=== PATIENT | female | born 1940 | race Caucasian/White ===

== ENCOUNTER 2020-04-28 17:25 | Inpatient (IN) | payer MEDICARE, OTHER ==
[~2020-04-28] VITALS: Ht 165.1 cm; Wt 118.8 kg
--- NOTE | 2020-04-28 17:51 | NUR ---
GPS ADMISSION NOTE : [email or web address] . PATIENT ARRIVED ON THIS UNIT AT VIA WHEELCHAIR WITH 1 EMT ESCORT. PATIENT ADMITTED ON A 5150 HOLD FOR DTS,GD. PER HOLD PATIENT DELUSIONAL SHE BELIEVES SHE NEEDS TO DRIVE TO THE LOCAL AIR PORT BECAUSE HER SON IS SENDING A PRIVATE JUT FOR HER PATIENT UNABLE TO PROVIDE A SAFE PLAN AT THIS TIME THE 5150 WAS REVIEWED AND THE DOCUMENTATION IN THE 5150 HOLD APPEARS TO REFLECT THE PRESENTATION OF THE PATIENT. UPON FACE TO FACE ASSESSMENT PATIENT IS CURRENTLY IN BED AWAKE, HAS NO S/S OR COMPLAINTS OF PAIN. PATIENT IS DISPLAYING NO S/S OF APPARENT DISTRESS. PATIENT BREATHING IS UNLABORED WITH EQUAL RISE AND FALL OF THE CHEST. PATIENT IS ALERT AND ORIENTATED X 2 ON ROOM AIR. PATIENT ASSISTED WITH TURING AND REPOSITIONING Q2HR AND PRN FOR COMFORT AND CIRCULATION. PATIENT HAS NO NEEDS AT THIS TIME. PATIENT IS NOTED TO BEING DELUSIONAL, DISHEVELED, DISORGANIZED, COOPERATIVE, AND NEEDS REDIRECTION. PATIENT DENIES SUICIDE IDEATIONS AND HOMICIDAL IDEATIONS AT THIS TIME. PATIENT IS UNDER THE PSYCHIATRIC CARE OF DR. YOUNG AND THE MEDICAL CARE OF DR RUGGIERO. PATIENT BELONGINGS WERE INVENTORIED AND CHECKED FOR CONTRABAND. ALL CONTRABAND REMOVED AND STORED IN PATIENT HALLWAY LOCKER. PATIENT ADVANCED DIRECTIVES PREFERENCE, IMMUNIZATIONS QUESTIONER COMPLETED. PATIENT EDUCATED ON THE USE OF THE CALL RODRIGUEZ. PATIENT BED SIDE RAILS ARE UP X 2 FOR SAFETY. PATIENT BED IS LOCKED, LOW AND I WILL CONTINUE TO MONITOR THIS PATIENT Q 15 MIN WITH THE HELP OF STAFF TO MAINTAIN SAFETY. WILL INDORSE TO INCOMING SHIFT NURSE OF FULL ADMISSION AND CONTINUATION OF CARE
[2020-04-28] MEDS ORDERED: HYDR50TA3 PO (18:16)
[2020-04-28] MEDS ORDERED: TRAM50TA2 PO (18:16)
[2020-04-28] MEDS ORDERED: CALC-20 PO (18:16)
[2020-04-28] MEDS ORDERED: ATOR40TA PO (18:16)
[2020-04-28] MEDS ORDERED: AMLO5TAB9 PO (18:16)
[2020-04-28] MEDS ORDERED: MULT-447 PO (18:16)
[2020-04-28] MEDS ORDERED: ISOS60TA4 PO (18:16)
[2020-04-28] MEDS ORDERED: ACET325T53 PO (18:16)
[2020-04-28] MEDS ORDERED: ATEN100T PO (18:16)
[2020-04-28] MEDS ORDERED: BLOOD SUGAR DIAGNOSTIC 1 EACH STRIP IN ONE ×2 (18:30)
[2020-04-28] MEDS ORDERED: MAG HYDROX/AL HYDROX/SIMETH 30 ML UDC PO PRN ×2 (18:30)
[2020-04-28] MEDS ORDERED: ACETAMINOPHEN 325 MG TABLET PO PRN ×2 (18:30→20:30)
[2020-04-28] MEDS ORDERED: MAGNESIUM HYDROXIDE 30 ML UDC PO PRN ×2 (18:30)
[2020-04-28 20:14] VITALS: BP 148/78
[2020-04-28] MEDS ORDERED: LORAZEPAM 0.5 MG TABLET PO PRN (21:00)
[2020-04-28] MEDS: ACETAMINOPHEN 325 MG TABLET PO PRN (22:05)
--- NOTE | 2020-04-28 22:05 | NUR ---
GPS-RN NOTE: C/O BILATERAL KNEE PAIN PATIENT C/O BILATERAL KNEE PAIN ON A PAIN SCALE OF 3/10. ADMINISTERED ACETAMINOPHEN 650MG PO ORDERED. WILL CONTINUE TO REASSESS.
[2020-04-29 03:01] LABS: APPEARANCE,URINE CLEAR (CLEAR); BILIRUBIN,URINE NEGATIVE (NEGATIVE); BLOOD, URINE NEGATIVE Ery/uL (NEGATIVE); COLOR,URINE YELLOW (YELLOW); KETONES,URINE NEGATIVE (NEGATIVE); LEUKOCYTE ESTERASE ,URINE NEGATIVE (NEGATIVE); NITRITE, URINE NEGATIVE (NEGATIVE); PH,URINE 6.5 (5.0-8.0); PROTEIN,URINE NEGATIVE (NEGATIVE); UGLUCOSE NEGATIVE (NEGATIVE)
[2020-04-29 03:08] LABS: BACTERIA,URINE Few /HPF (None Seen); RBC,URINE 0-2 /HPF (0-2); SQUAMOUS EPITHELIAL CELL,UR Moderate /HPF (None Seen); WBC,URINE 0-2 /HPF (0-3)
[2020-04-29 06:22] LABS: BASOPHILS % (AUTO) 0.3 % (0.0-2.0); EOSINOPHILS % (AUTO) 0.4 % (0.0-6.0); HEMATOCRIT 37 % (33-45); HEMOGLOBIN 12.5 g/dL (11.5-14.8); LYMPHOCYTES # (AUTO) 1.4 /CMM (0.8-4.8); LYMPHOCYTES % (AUTO) 25.9 % (20.0-44.0); MEAN CORPUSCULAR HGB CONC 34 g/dl (31.0-36.0); MEAN CORPUSCULAR VOLUME 89 fL (82-100); MONOCYTES # (AUTO) 0.8 /CMM (0.1-1.30); MONOCYTES % (AUTO) 14.9 % (2.0-12.0); NEUTROPHILS # (AUTO) 3.1 /CMM (1.8-8.9); NEUTROPHILS % (AUTO) 58.5 % (43.0-81.0); PLATELET COUNT (AUTO) 229 /CMM (150-450); RED BLOOD CELL COUNT(AUTO) 4.19 MIL/uL (4.0-5.2); WHITE BLOOD COUNT (AUTO) 5.3 K/uL (4.3-11.0)
[2020-04-29 06:58] LABS: ALANINE AMINOTRANSFERASE 22 U/L (12-78); ALBUMIN 2.6 g/dL (3.4-5.0); ALKALINE PHOSPHATASE 58 U/L (46-116); ASPARTATE AMINOTRANSFERASE 24 U/L (15-37); BILIRUBIN,TOTAL 0.6 mg/dL (0.2-1.0); CALCIUM, SERUM 8.6 mg/dL (8.5-10.1); CARBON DIOXIDE 29 mmol/L (21-32); CHLORIDE 101 mmol/L (98-107); CREATININE 0.5 mg/dL (0.6-1.3); GLUCOSE 98 mg/dL (74-106); MAGNESIUM 1.7 mg/dL (1.8-2.4); PHOSPHORUS 1.8 mg/dL (2.5-4.9); SODIUM SERUM 140 mmol/L (136-145); TOTAL PROTEIN, SERUM 6.4 g/dL (6.4-8.2); UREA NITROGEN, BLOOD 6 mg/dL (7-18)
[2020-04-29 07:02] LABS: POTASSIUM 2.3 mmol/L (3.5-5.1)
[2020-04-29 07:13] LABS: CHOLESTEROL 130 mg/dL (<200); HDL CHOLESTEROL 65 mg/dL (40-60); LDL 50 mg/dL (0-99); TRIGLYCERIDES 69 mg/dL (30-150)
--- NOTE | 2020-04-29 07:13 | NUR ---
GPS-RN NOTE: CALLED P D DRIVER BAHMAN REPORTED CRITICAL LAB RESULT OF POTASSIUM 2.3 AND LOW MAGNESIUM OF 1.7. RECEIVED ORDERS NOTED AND CARRIED OUT. WILL ENDORSE TO THE DAY SHIFT NURSE FOR CONTINUITY OF CARE.
[2020-04-29] MEDS ORDERED: MAGNESIUM OXIDE 400 MG TABLET PO ONE (07:30)
[2020-04-29] MEDS ORDERED: POTASSIUM CHLORIDE 20 MEQ TAB.PRT.SR PO ONE (07:30)
[2020-04-29 08:00] VITALS: BP 140/62
[2020-04-29] MEDS ORDERED: HYDROCHLOROTHIAZIDE 25 MG TABLET PO SCH (09:00)
[2020-04-29] MEDS ORDERED: AMLODIPINE BESYLATE 5 MG TABLET PO SCH (09:00)
[2020-04-29] MEDS: CALCIUM CARB 600MG /VIT D 1 EACH TABLET PO SCH (09:10)
[2020-04-29] MEDS: ISOSORBIDE MONONITRATE (30MG) 30 MG TAB.SR.24H PO SCH (09:13)
[2020-04-29] MEDS: AMLODIPINE BESYLATE 5 MG TABLET PO SCH (09:13)
[2020-04-29] MEDS: ATENOLOL 50 MG TABLET PO SCH (09:14)
[2020-04-29] MEDS: MULTIVIT W/MINERALS 1 TAB TABLET PO SCH (09:14)
[2020-04-29] MEDS: MAGNESIUM OXIDE 400 MG TABLET PO SCH ×2 (09:17→16:14)
[2020-04-29] MEDS: NEUTRA PHOS 1 POWD.PACKET PO SCH ×3 (09:55→16:14)
--- NOTE | 2020-04-29 11:08 | NUR ---
GPS/RN-NOTES SEEN BY DR. NESTOR RENEE WITH VERBAL ORDER OF BMP TOMORROW. NOTED AND CARRIED OUT.
--- NOTE | 2020-04-29 11:53 | NUR ---
JULIANA Initial Discharge Plan: Patient currently resides [place] [address] [facility] [place] [address]; ([phone]). Per pt, she resides with her daughter Aliza ([phone]). This short story writer attempted to contact Aliza, but she was unavailable to gather collateral. This short story writer left a voicemail to contact JULIANA. This short story writer will work with the MD and treatment team to coordinate proper discharge plan.
--- NOTE | 2020-04-29 11:54 | NUR ---
SW Family Contact: This press writer attempted to contact patient's daughter Aliza ([phone]) to gather collateral, however, she was unavailable and this press writer left a voicemail.
[2020-04-29 13:45] LABS: CALCIUM, SERUM 8.6 mg/dL (8.5-10.1); CREATININE 0.6 mg/dL (0.6-1.3)
[2020-04-29 13:48] LABS: POTASSIUM 2.6 mmol/L (3.5-5.1)
[2020-04-29 16:00] VITALS: BP 121/51
[2020-04-29] MEDS: ATORVASTATIN 40 MG TABLET PO SCH (17:13)
[2020-04-29 20:43] VITALS: BP 140/67
--- NOTE | 2020-04-30 00:37 | NUR ---
GPS RN NOTE: SKIN ASSESSMENT 04/29/20 @ 5923 NOTICED WHEN THE PT WAS WALKING TO RESTROOM HER FEET WERE SWOLLEN, PTS FEET/ANKLE WERE +3, NON-PITTING EDEMA. PLACED PICTURES IN CHART, WOUND CONSULT NOT NEEDED AT THIS TIME. WILL PASS IT ON TO MORNING NURSE TO NOTIFY FRUIT PACKER FACE AND FILL WHEN MAKING ROUNDS, PT COMPLAINTS OF NO PAIN OTHER THAN WHEN APPLYING PRESSURE. ELEVATED PTS LEGS, WILL CONTINUE TO MONITOR Q15MIN FOR SAFETY AND BEHAVIOR AND ROTATE SITE E. 2HRS.
--- NOTE | 2020-04-30 05:09 | NUR ---
GPS RN NOTE: ANXIETY PT WAS FEELING RESTLESS AND IRRITABLE, ASKED PT IF SHE'D LIKE TO TRY ATIVAN TO HELP WITH HER COMPLAINT SHE SAID "SURE LET ME TRY THAT". ADMIN PRN ATIVAN. WILL REASSESS AND CONTINUE TO MONITOR Q15MIN FOR SAFETY AND BEHAVIOR
--- NOTE | 2020-04-30 06:57 | NUR ---
GPS RN NOTE: PT REFUSED BLOOD DRAW PT REFUSED BLOOD DRAW, REMINDED PT 3X OF THE REASON FOR BLOOD DRAW, THE NEED TO DO SO ESPECIALLY DUE TO K+ AND MG LEVELS BEING LOW YESTERDAY BUT PT STILL REFUSED, LAB SAID THEY WILL COME BACK IN A FEW HOURS TO TRY AGAIN. I WILL LET UPCOMING NURSE KNOW.
[2020-04-30 08:00] VITALS: BP 129/75
[2020-04-30] MEDS: CALCIUM CARB 600MG /VIT D 1 EACH TABLET PO SCH ×2 (09:00→09:54)
[2020-04-30] MEDS: ISOSORBIDE MONONITRATE (30MG) 30 MG TAB.SR.24H PO SCH (09:56)
[2020-04-30] MEDS: MAGNESIUM OXIDE 400 MG TABLET PO SCH ×2 (09:56→18:18)
[2020-04-30] MEDS: risperiDONE 1 MG TABLET PO SCH ×2 (09:56→22:00)
[2020-04-30] MEDS: MULTIVIT W/MINERALS 1 TAB TABLET PO SCH (09:56)
[2020-04-30] MEDS ORDERED: POTASSIUM CHLORIDE 20 MEQ TAB.PRT.SR PO ONE (12:00)
[2020-04-30] MEDS: ATENOLOL 50 MG TABLET PO SCH (12:30)
--- NOTE | 2020-04-30 13:12 | NUR ---
potassium level has been low,refusing labs today.tad palliative senior np ordering k-dur 40 meq. for pt.
[2020-04-30 16:00] VITALS: BP 106/71
[2020-04-30 16:05] LABS: BASOPHILS % (AUTO) 0.3 % (0.0-2.0); EOSINOPHILS % (AUTO) 0.3 % (0.0-6.0); HEMATOCRIT 40 % (33-45); HEMOGLOBIN 13.2 g/dL (11.5-14.8); LYMPHOCYTES # (AUTO) 1.8 /CMM (0.8-4.8); LYMPHOCYTES % (AUTO) 38.3 % (20.0-44.0); MEAN CORPUSCULAR HGB CONC 33 g/dl (31.0-36.0); MEAN CORPUSCULAR VOLUME 89 fL (82-100); MONOCYTES # (AUTO) 0.7 /CMM (0.1-1.30); MONOCYTES % (AUTO) 15.9 % (2.0-12.0); NEUTROPHILS # (AUTO) 2.1 /CMM (1.8-8.9); NEUTROPHILS % (AUTO) 45.2 % (43.0-81.0); PLATELET COUNT (AUTO) 251 /CMM (150-450); RED BLOOD CELL COUNT(AUTO) 4.43 MIL/uL (4.0-5.2); WHITE BLOOD COUNT (AUTO) 4.6 K/uL (4.3-11.0)
[2020-04-30] MEDS: AMLODIPINE BESYLATE 5 MG TABLET PO SCH (16:19)
[2020-04-30 16:22] LABS: ALBUMIN 2.9 g/dL (3.4-5.0); BILIRUBIN,TOTAL 0.5 mg/dL (0.2-1.0); CALCIUM, SERUM 8.7 mg/dL (8.5-10.1); CREATININE 0.8 mg/dL (0.6-1.3); MAGNESIUM 1.7 mg/dL (1.8-2.4); PHOSPHORUS 2.5 mg/dL (2.5-4.9)
[2020-04-30 16:27] LABS: POTASSIUM 2.7 mmol/L (3.5-5.1)
[2020-04-30 16:50] LABS: LYMPHOCYTES % (MANUAL) 22 % (16-48); MONOCYTES % (MANUAL) 15 % (0-11.0); NEUTROPHILS % (MANUAL) 63 (42-76)
--- NOTE | 2020-04-30 18:00 | NUR ---
tad labor representative aware potassium level 2.7 with lab draw this afternoon,ordered labs for tomorrow.lab drawn late only short time after kcl given.
[2020-04-30] MEDS: ATORVASTATIN 40 MG TABLET PO SCH (18:19)
[2020-04-30 20:00] VITALS: BP 115/94
[2020-04-30 20:05] VITALS: BP 115/94
[2020-04-30 22:10] VITALS: BP 122/87
--- NOTE | 2020-04-30 22:12 | NUR ---
GPS RN NOTE: REFUSED RISPERDAL PATIENT REFUSED TO TAKE RISPERDAL AT [address] YOUNG AT THIS TIME & MD EXPLAINED THAT MEDICINE WILL HELP HER TO GET BETTER BUT PATIENT KEPT SAYING," I WANT TO GET OFF OF MEDICATION, I DON'T NEED IT." DESPITE OF RISKS & BENEFITS EXPLANATIONS, PATIENT CONTINUED TO REFUSE RISPERDAL SCHEDULED.
[2020-05-01] MEDS: ACETAMINOPHEN 325 MG TABLET PO PRN (05:50)
--- NOTE | 2020-05-01 05:54 | NUR ---
GPS RN NOTE: LEFT KNEE PAIN PATIENT C/O LEFT KNEE PAIN 10/19 & WANTED TO TAKE TYLENOL. PRN TYLENOL GIVEN ORDERED. WILL CONTINUE TO MONITOR.
[2020-05-01 07:38] LABS: CALCIUM, SERUM 8.9 mg/dL (8.5-10.1); CREATININE 0.6 mg/dL (0.6-1.3); MAGNESIUM 1.8 mg/dL (1.8-2.4); PHOSPHORUS 2.6 mg/dL (2.5-4.9)
[2020-05-01 07:51] LABS: POTASSIUM 2.8 mmol/L (3.5-5.1)
[2020-05-01 08:00] VITALS: BP 118/43
[2020-05-01] MEDS: ATENOLOL 50 MG TABLET PO SCH (09:00)
[2020-05-01] MEDS: MULTIVIT W/MINERALS 1 TAB TABLET PO SCH (09:20)
[2020-05-01] MEDS: ISOSORBIDE MONONITRATE (30MG) 30 MG TAB.SR.24H PO SCH (09:20)
[2020-05-01] MEDS: CALCIUM CARB 600MG /VIT D 1 EACH TABLET PO SCH (09:20)
[2020-05-01] MEDS: AMLODIPINE BESYLATE 5 MG TABLET PO SCH (09:22)
[2020-05-01] MEDS: risperiDONE 1 MG TABLET PO SCH ×2 (09:23→21:16)
[2020-05-01] MEDS: POTASSIUM CHLORIDE 20 MEQ TAB.PRT.SR PO SCH ×3 (10:29→13:08)
[2020-05-01] MEDS ORDERED: PANTOPRAZOLE 40 MG TABLET.DR PO ONE (10:30)
[2020-05-01] MEDS ORDERED: MAGNESIUM OXIDE 400 MG TABLET PO ONE (10:30)
[2020-05-01] MEDS ORDERED: POTASSIUM CHLORIDE 20 MEQ TAB.PRT.SR PO ONE (10:30)
[2020-05-01 16:00] VITALS: BP 142/68
[2020-05-01] MEDS: ATORVASTATIN 40 MG TABLET PO SCH (16:11)
[2020-05-01 19:55] VITALS: BP 140/82
[2020-05-01] MEDS: TEMAZEPAM 7.5 MG CAPSULE PO PRN (22:43)
--- NOTE | 2020-05-01 22:47 | NUR ---
GPS RN NOTE: INSOMNIA PATIENT IS UNABLE TO SLEEP, ANXIOUS, HYPERVERBAL, PARANOID AT THIS TIME. PRN RESTORIL 7.5 MG 1 CAP PO GIVEN. WILL CONTINUE TO MONITOR FOR EFFECTIVENESS.
--- NOTE | 2020-05-02 07:46 | NUR ---
RN NOTES PATIENT RECEIVED IN BED RESTING COMFORTABLY, ALERT AND ORIENTED X 2. HYPERVERBAL SPEECH PRESENT AT THIS TIME, SPEAKING ABOUT GOD, AND HER [place] [employer], STATING SHE NEEDS TO LEAVE. PATIENT ON ROOM AIR WITH NO RESPIRATORY DISTRESS PRESENT AT THIS TIME WITH EVEN NON-LABORED BREATHING, WITH NO SOB NOTED. NO APPARENT DISTRESS AT THIS TIME. PATIENT PRESENTS WITH NO PAIN OR DISCOMFORT. SAFETY PRECAUTIONS IMPLEMENTED WITH BED LOCKED, BED IN THE LOWEST POSITION, BILATERAL SIDE RAILS UP, BED ALARM ON. WILL CONTINUE TO MONITOR PATIENT.
[2020-05-02 08:00] VITALS: BP 130/58
[2020-05-02] MEDS: risperiDONE 1 MG TABLET PO SCH ×2 (08:22→21:30)
[2020-05-02] MEDS: AMLODIPINE BESYLATE 5 MG TABLET PO SCH (08:23)
[2020-05-02] MEDS: MULTIVIT W/MINERALS 1 TAB TABLET PO SCH (08:23)
[2020-05-02] MEDS: CALCIUM CARB 600MG /VIT D 1 EACH TABLET PO SCH (08:23)
[2020-05-02] MEDS: ISOSORBIDE MONONITRATE (30MG) 30 MG TAB.SR.24H PO SCH (08:24)
[2020-05-02] MEDS: ATENOLOL 50 MG TABLET PO SCH (08:28)
[2020-05-02 08:38] LABS: CALCIUM, SERUM 8.9 mg/dL (8.5-10.1); CREATININE 0.6 mg/dL (0.6-1.3); PHOSPHORUS 2.3 mg/dL (2.5-4.9); POTASSIUM 3.4 mmol/L (3.5-5.1)
--- NOTE | 2020-05-02 11:55 | NUR ---
RN NOTES PATIENT HAS SCHEDULE PO POTASSIUM CHLORIDE 20 mEq ORDERED, PATIENT REFUSED MEDICATION STATING "I DON'T NEED THIS AND NEED TO SEE MY DR, I AM REFUSING THIS MEDICATION." EDUCATED THE PATIENT THE REASON FOR MEDICATION AND RISKS AND BENEFITS. PATIENT KEPT REFUSING MULTIPLE TIMES. CHARGE NURSE MADE AWARE AND WILL CONTINUE TO MONITOR PATIENT.
[2020-05-02] MEDS ORDERED: POTASSIUM CHLORIDE 20 MEQ TAB.PRT.SR PO SCH (12:00)
[2020-05-02] MEDS ORDERED: K PHOS NEUTRAL 250 MG TABLET PO ONE (14:00)
--- NOTE | 2020-05-02 14:59 | NUR ---
RN NOTES PATIENT REFUSED NEUTRA PHOS K 500mg ORDERED. EXPLAINED AND EDUCATED THE PATIENT THE RISKS AND BENEFITS OF TAKING THIS MEDICATIONS, AND PATIENT KEPT REFUSING MULTIPLE TIMES. KEPT ON EDUCATING AND PATIENT DID NOT WANT TO HEAR IT AND STATING " I AM NOT TAKING ANY MEDICATIONS." WILL CONTINUE TO MONITOR PATIENT.
--- NOTE | 2020-05-02 15:12 | NUR ---
Family Contact: Pt's daughter Aliza ([phone]) called the SW and stated that she wanted an update regarding the pts diagnosis and discharge plan. SW informed her of the diagnosis and stated that she is going to be sending out referrals for the pt today. SW stated that she will update her the following day with an accepting facility. Pts daughter reinforced that this placement is going to be temporary as the plan is to discharge the pt to a facility in [place].
--- NOTE | 2020-05-02 15:42 | NUR ---
SNF Referral: JULIANA faxed a referral to [facility] with attention to Regina to the fax number: [phone].
[2020-05-02] MEDS: ATORVASTATIN 40 MG TABLET PO SCH (18:00)
--- NOTE | 2020-05-02 18:01 | NUR ---
RN NOTES PATIENT REFUSED MEDICATION ATORVASTATIN PO 40mg ORDERED, STATING "I DON'T WANT TO TAKE ANY MEDICATIONS!" EDUCATED THE PATIENT THE BENEFITS AND RISKS OF NOT TAKING THE MEDICATION MULTIPLE TIMES AND PATIENT KEPT REFUSING. WILL CONTINUE TO MONITOR PATIENT AT THIS TIME.
--- NOTE | 2020-05-02 21:31 | NUR ---
GPS RN NOTES: REFUSED PM MEDS PT REFUSED RISPERDAL 0.5MG PO ORDERED. PT STATED, "THE LORD TELLS ME WHAT TO DO. NOT YOU." EXPLAIN RISKS AND BENEFITS. PT STILL REFUSED X3. CONTINUE TO MONITOR.
--- NOTE | 2020-05-02 23:46 | NUR ---
GPS RN NOTES: UPON DOING ROUNDS PT AWAKE. OFFERED PT SLEEPING MEDICATION RESTORIL. PT REFUSED AND STATED, "NO. I WILL NOT TAKE ANYTHING YOU WILL GIVE ME. THE LORD IS IN MY PRAYERS." EXPLAIN RISKS AND BENEFITS OF SLEEP. PT STILL REFUSED X3. CONTINUE TO MONITOR.
--- NOTE | 2020-05-03 03:37 | NUR ---
GPS RN NOTES: UPON DOING ROUNDS PT WOKE UP BANGING ON ROOM WINDOW, THROWING SHEETS AND PILLOW, PT VERBALLY ABUSIVE TOWARDS STAFF, AND ATTEMPTING TO HIT STAFF. ENCOURAGE TO EXPRESS THOUGHTS AND FEELINGS TOWARDS STAFF. PT YELLING, SCREAMING,LAUGHING, CRYING, SINGING, CURSING AND PRAISING. PT INCREASED AGITATION, AGGRESSIVE, AND DANGER TO OTHERS. PAGED DR YOUNG [id number]. AWAITING FOR CALL AND NEW ORDERS. AT 0337 DR YOUNG CALLED BACK WITH NEW ORDERS OF EMERGENCY SHOT HALDOL 2MG IM X1 AND ATIVAN 1MG IM X1. ORDERS NOTED AND CARRIED OUT. BEFORE GIVING MEDS, PT REFUSED VITALS TO BE TAKEN. NO SOB. NO RESP DISTRESS. BREATHING EVEN AND UNLABORED. PT BECAME MORE AGITATED. ADMINISTERED MEDICATION IM ON PTS RIGHT GLUTEAL MUSCLE PER ORDER PHYSICALLY HELD BY MANAGER COMMUNITY DEVELOPMENT AND SECURITY. TOLERATED MEDICATION WELL. CONTINUE TO MONITOR Q15 MIN Addendum: 05/03/20 at 0611 by TYSON ROBERTO RN PT PULLING OUT ROOM CURTAIN BY THE WINDOW
[2020-05-03] MEDS ORDERED: LORAZEPAM INJ 2 MG/ML VIAL IM ONE ×2 (04:00→07:00)
[2020-05-03] MEDS ORDERED: HALOPERIDOL LACTATE INJ 5 MG/ML VIAL IM ONE ×3 (04:00→11:00)
--- NOTE | 2020-05-03 04:17 | NUR ---
GPS RN NOTES: PT AWAKE, CALM, AND IN BED QUIET. CONTINUE TO MONITOR FOR SAFETY Q15 MIN.
--- NOTE | 2020-05-03 06:16 | NUR ---
GPS RN NOTES: REFUSED LABS PT REFUSED AM LABS. EXPLAIN RISK AND BENEFITS. PT REFUSED X3. PT STATED, "NO NOT NOW. LET ME BE " WILL ENDORSE TO DAY SHIFT. CONTINUE TO MONITOR
--- NOTE | 2020-05-03 06:30 | NUR ---
GPS RN NOTES: UPON DOING ROUNDS PT TRYING TO GET OUT OF BED AND PRAISING LOUDLY. ENCOURAGE PT EXPRESS THOUGHTS AND FEELINGS. PT YELLING, VERBALLY AGGRESSIVE TOWARDS STAFF, AND THROWING LINEN. PT INCREASED AGITATION AND STATED, "IN THE NAME OF LORD GET OUT OF HERE. " PAGED DR YOUNG AND LEFT A MESSAGE AND AWAITING FOR MD TO CALL BACK. WILL CONTINUE TO MONITOR PT.
--- NOTE | 2020-05-03 06:37 | NUR ---
GPS RN NOTES: RECEIVED CALL BACK FROM DR YOUNG WITH N.O. ORDERS FOR IM EMERGENCY SHOT ATIVAN 1MG IM X1 AND HALDOL 2MG X1. PT REFUSED VITALS. NO SOB. NO RESP DISTRESS. ADMINISTERED MEDICATION THROUGH PTS GLUTEAL LEFT MUSCLE. TOLERATED MEDICATION WELL. CONTINUE TO MONITOR.
[2020-05-03] MEDS: CALCIUM CARB 600MG /VIT D 1 EACH TABLET PO SCH (09:00)
[2020-05-03] MEDS: AMLODIPINE BESYLATE 5 MG TABLET PO SCH (09:00)
[2020-05-03] MEDS: ISOSORBIDE MONONITRATE (30MG) 30 MG TAB.SR.24H PO SCH (09:00)
[2020-05-03] MEDS: MULTIVIT W/MINERALS 1 TAB TABLET PO SCH (09:00)
[2020-05-03] MEDS: risperiDONE 1 MG TABLET PO SCH ×2 (09:00→20:23)
[2020-05-03] MEDS: ATENOLOL 50 MG TABLET PO SCH (09:00)
--- NOTE | 2020-05-03 09:00 | NUR ---
RN NOTE- PT RECEIVED EMERGENCY IM AT SHIFT CHANGE. PT QUIET SINCE THOUGH IRRITABLE AND OPPOSITIONAL TO ANY CARE. PT DELUSIONAL AND PSYCHOTIC. REFUSING ALL FOOD DRINK AND MEDS. MONITORING BEHAVIOR
--- NOTE | 2020-05-03 09:30 | NUR ---
RN NOTE- PT COMBATIVE OPPOSITIONAL TO CARE AND RX. PSYCHOTIC AND DELUSIONAL. CURRENTLY QUIET AFTER TWO EARLY AM EMERGENCY RX IM SHOTS. STILL W DELUSIONS REGARDING RIZWAN [facility] AND THE DEVIL. MONITORING BEHAVIORS CLOSELY
--- NOTE | 2020-05-03 10:35 | NUR ---
RN NOTE- PT FOUND TO HAVE TIED SHEET IN LOOP AROUND SHOULDERS AND NECK . ORDERED TO REMOVE. PT REFUSED. BECAME AGITATED. DR YOUNG AND JAYDON NOTIFIED. SECURITY TO UNIT. REMOVED SHEET W STAFF. DR YOUNG ORDERED REISE PAPERWORK AND EMERGENCY IM ATIVAN 2 MG AND HALDOL 5 MG. COMPLIYING.
[2020-05-03] MEDS ORDERED: LORAZEPAM INJ 2 MG/ML VIAL IM STA (10:41)
--- NOTE | 2020-05-03 10:56 | NUR ---
RN NOTE- EMERGENCY IM GIVEN W FEMALE RN AND STAFF. ATIVAN 2 MG AND HALDOL 5 MG. MONITORING
[2020-05-03 16:00] VITALS: BP 113/50
[2020-05-03] MEDS: ATORVASTATIN 40 MG TABLET PO SCH (18:00)
[2020-05-03 20:00] VITALS: BP 129/61
[2020-05-04 08:00] VITALS: BP 157/63
[2020-05-04] MEDS: risperiDONE 1 MG TABLET PO SCH ×2 (09:00→21:13)
[2020-05-04] MEDS: ISOSORBIDE MONONITRATE (30MG) 30 MG TAB.SR.24H PO SCH (09:00)
[2020-05-04] MEDS: AMLODIPINE BESYLATE 5 MG TABLET PO SCH (09:00)
[2020-05-04] MEDS: ATENOLOL 50 MG TABLET PO SCH (09:00)
[2020-05-04] MEDS: MULTIVIT W/MINERALS 1 TAB TABLET PO SCH (09:00)
[2020-05-04] MEDS: CALCIUM CARB 600MG /VIT D 1 EACH TABLET PO SCH (09:00)
--- NOTE | 2020-05-04 09:00 | NUR ---
RN NOTE- PT QUIET TODAY SLEPT WELL LAST NOC CALM THIS MORNING THOUGH STILL OPPOSITIONAL TO CARE REFUSING MORNING RX.PO INTAKE GOOD WITHDRAWN
--- NOTE | 2020-05-04 12:21 | NUR ---
Family Contact: SW called the pts daughter Aliza ([phone]) and left a voicemail stating that the pts hearing was upheld and that the pt will be discharged when the MD thinks that she is ready. JULIANA also stated that the pt has been acting out and has not been taking her medications so the SW informed her that the MD may have to file for a Riese hearing.
[2020-05-04 15:48] LABS: BASOPHILS % (AUTO) 0.2 % (0.0-2.0); EOSINOPHILS % (AUTO) 0.3 % (0.0-6.0); HEMATOCRIT 37 % (33-45); HEMOGLOBIN 12.5 g/dL (11.5-14.8); LYMPHOCYTES # (AUTO) 1.6 /CMM (0.8-4.8); LYMPHOCYTES % (AUTO) 25.9 % (20.0-44.0); MEAN CORPUSCULAR HGB CONC 33 g/dl (31.0-36.0); MEAN CORPUSCULAR VOLUME 90 fL (82-100); MONOCYTES # (AUTO) 0.9 /CMM (0.1-1.30); MONOCYTES % (AUTO) 14.9 % (2.0-12.0); NEUTROPHILS # (AUTO) 3.7 /CMM (1.8-8.9); NEUTROPHILS % (AUTO) 58.7 % (43.0-81.0); PLATELET COUNT (AUTO) 238 /CMM (150-450); RED BLOOD CELL COUNT(AUTO) 4.15 MIL/uL (4.0-5.2); WHITE BLOOD COUNT (AUTO) 6.2 K/uL (4.3-11.0)
[2020-05-04 16:00] VITALS: BP 135/67
[2020-05-04 16:04] LABS: ALBUMIN 2.6 g/dL (3.4-5.0); BILIRUBIN,TOTAL 0.4 mg/dL (0.2-1.0); CALCIUM, SERUM 9.1 mg/dL (8.5-10.1); CREATININE 0.6 mg/dL (0.6-1.3); POTASSIUM 3.2 mmol/L (3.5-5.1); TOTAL PROTEIN, SERUM 6.6 g/dL (6.4-8.2)
[2020-05-04] MEDS: ATORVASTATIN 40 MG TABLET PO SCH (17:42)
[2020-05-04] MEDS: ENSURE ENLIVE CHOC 237 ML CAN PO SCH (19:30)
[2020-05-04] MEDS ORDERED: POTASSIUM CHLORIDE 20 MEQ TAB.PRT.SR PO ONE (19:30)
--- NOTE | 2020-05-04 19:34 | NUR ---
gps rn notes: refused ensure pt refused ensure. pt stated, "nope. i dont like." explain risks and benefits. pt refused x3. continue to monitor.
[2020-05-04] MEDS: ACETAMINOPHEN 325 MG TABLET PO PRN (19:53)
--- NOTE | 2020-05-04 19:56 | NUR ---
GPS RN NOTES: BACK PAIN PT C/O OF BACK PAIN. OFFERED TYLENOL PRN ORDERED. PT AGREED AND TOLERATED MEDICATION WELL. CONTINUE TO MONITOR
[2020-05-04 20:06] VITALS: BP 152/83
[2020-05-05 07:44] LABS: ALBUMIN 2.9 g/dL (3.4-5.0); BILIRUBIN,TOTAL 0.5 mg/dL (0.2-1.0); CALCIUM, SERUM 9.4 mg/dL (8.5-10.1); CREATININE 0.6 mg/dL (0.6-1.3); MAGNESIUM 2.2 mg/dL (1.8-2.4); PHOSPHORUS 2.8 mg/dL (2.5-4.9); POTASSIUM 3.4 mmol/L (3.5-5.1)
[2020-05-05 07:45] LABS: BASOPHILS % (AUTO) 0.1 % (0.0-2.0); EOSINOPHILS % (AUTO) 0.2 % (0.0-6.0); HEMATOCRIT 38 % (33-45); HEMOGLOBIN 12.8 g/dL (11.5-14.8); LYMPHOCYTES # (AUTO) 1.6 /CMM (0.8-4.8); LYMPHOCYTES % (AUTO) 23.9 % (20.0-44.0); MEAN CORPUSCULAR HGB CONC 33 g/dl (31.0-36.0); MEAN CORPUSCULAR VOLUME 91 fL (82-100); MONOCYTES # (AUTO) 0.8 /CMM (0.1-1.30); MONOCYTES % (AUTO) 12.1 % (2.0-12.0); NEUTROPHILS # (AUTO) 4.2 /CMM (1.8-8.9); NEUTROPHILS % (AUTO) 63.7 % (43.0-81.0); PLATELET COUNT (AUTO) 227 /CMM (150-450); RED BLOOD CELL COUNT(AUTO) 4.24 MIL/uL (4.0-5.2); WHITE BLOOD COUNT (AUTO) 6.6 K/uL (4.3-11.0)
[2020-05-05 08:00] VITALS: BP 152/74
[2020-05-05] MEDS: ENSURE ENLIVE CHOC 237 ML CAN PO SCH ×2 (08:44→11:37)
[2020-05-05] MEDS: AMLODIPINE BESYLATE 5 MG TABLET PO SCH (08:45)
[2020-05-05] MEDS: MULTIVIT W/MINERALS 1 TAB TABLET PO SCH (08:45)
[2020-05-05] MEDS: risperiDONE 1 MG TABLET PO SCH ×3 (08:45→22:30)
[2020-05-05] MEDS: ISOSORBIDE MONONITRATE (30MG) 30 MG TAB.SR.24H PO SCH (08:46)
[2020-05-05] MEDS: ATENOLOL 50 MG TABLET PO SCH (08:46)
[2020-05-05] MEDS: CALCIUM CARB 600MG /VIT D 1 EACH TABLET PO SCH (08:48)
[2020-05-05] MEDS ORDERED: POTASSIUM CHLORIDE 20 MEQ TAB.PRT.SR PO ONE (11:00)
[2020-05-05 16:00] VITALS: BP 107/58
[2020-05-05 16:22] VITALS: BP 107/58
[2020-05-05] MEDS: ACETAMINOPHEN 325 MG TABLET PO PRN (16:47)
--- NOTE | 2020-05-05 16:50 | NUR ---
GPS/RN-NOTES PATIENT C/O LEFT HIP PAIN ,TYLENOL 650MG P.O GIVEN PRN ORDER. WILL CONT. MONITORING FOR SAFETY.
[2020-05-05] MEDS: ENSURE ENLIVE 237 ML LIQUID (VANILLA) PO SCH (17:26)
[2020-05-05] MEDS: ATORVASTATIN 40 MG TABLET PO SCH (17:27)
[2020-05-05 20:23] VITALS: BP 103/52
[2020-05-06 08:00] VITALS: BP 142/66
[2020-05-06] MEDS: AMLODIPINE BESYLATE 5 MG TABLET PO SCH ×2 (09:00→09:12)
[2020-05-06] MEDS: ISOSORBIDE MONONITRATE (30MG) 30 MG TAB.SR.24H PO SCH ×2 (09:00→09:12)
[2020-05-06] MEDS: ENSURE ENLIVE 237 ML LIQUID (VANILLA) PO SCH ×3 (09:00→17:00)
[2020-05-06] MEDS: ATENOLOL 50 MG TABLET PO SCH ×2 (09:00→09:13)
[2020-05-06] MEDS: MULTIVIT W/MINERALS 1 TAB TABLET PO SCH (09:00)
[2020-05-06] MEDS: CALCIUM CARB 600MG /VIT D 1 EACH TABLET PO SCH (09:00)
--- NOTE | 2020-05-06 09:38 | NUR ---
GPS/RN-NOTES PATIENT REFUSED ALL 0900 MEDICATIONS DESPITE EXPLANATIONS OF THE RISK AND BENEFITS. STATED " I DON'T WANT TO TAKE ANY MEDICATIONS TODAY, LEAVE ME ALONE". OFFERED X3 BUT PATIENT GETS ANGRY AT THE AUDIOLOGY TECHNICIAN.
[2020-05-06] MEDS: risperiDONE 1 MG TABLET PO SCH ×2 (10:30→22:30)
--- NOTE | 2020-05-06 11:38 | NUR ---
GPS/RN-NOTES PATIENT REFUSED RISPERDAL 1MG P.O,STATED" I ALREADY TOLD YOU THAT I'M NOT TAKING MEDICATIONS". OFFERED X3
--- NOTE | 2020-05-06 14:37 | NUR ---
Family Contact: Pts daughterAislinn ([phone]), and JULIANA explainexd t Addendum: 05/06/20 at 1439 by JULIANA LINTON Family Contact: Pts daughterAislinn ([phone]), and SW explained that the SW cannot release information to her as the pt has not consented. Pts daughter expressed how upset she was and SW provided emotional support. JULIANA stated that as soon as the pt agrees she will be informed and information will be provided to her.
--- NOTE | 2020-05-06 14:38 | NUR ---
GPS/RN-NOTES RECEIVED A CALLER NAME CHUCKY WILLIAMSON AND CLAIMING SHE'S ONE OF THE PATIENT'S DTR AND WANTS INFORMATION REGARDING THE PATIENT. PER RECORD SHE'S NOT ON THE DOUBLE NEEDLE OPERATOR LOCKSTITCH OF THE PATIENT. PATIENT CLAY GATICA DOESN'T WANT TO SIGN A DISCLOSURE CONSENT WITH THE GASOLINE ENGINE INSPECTOR ,CHARGE NURSE ALSO WITNESS THE PATIENT REFUSAL.
[2020-05-06] MEDS: ATORVASTATIN 40 MG TABLET PO SCH (17:32)
--- NOTE | 2020-05-06 17:33 | NUR ---
GPS/RN-NOTES PATIENT REFUSED LIPITOR 4OMG P.O AND ENSURE SUPPLEMENT. STATED" I'M NOT GOING TO EAT OR TAKE ANY MEDICATIONS TODAY ". OFFERED X3 , ENCOURAGED TO EAT HER DINNER BUT STILL REFUSED TO EAT.
[2020-05-06 19:59] VITALS: BP 148/68
[2020-05-07] MEDS: ATENOLOL 50 MG TABLET PO SCH (09:00)
[2020-05-07] MEDS: CALCIUM CARB 600MG /VIT D 1 EACH TABLET PO SCH (09:00)
[2020-05-07] MEDS: MULTIVIT W/MINERALS 1 TAB TABLET PO SCH (09:00)
[2020-05-07] MEDS: AMLODIPINE BESYLATE 5 MG TABLET PO SCH (09:00)
[2020-05-07] MEDS: ISOSORBIDE MONONITRATE (30MG) 30 MG TAB.SR.24H PO SCH (09:00)
[2020-05-07] MEDS: ENSURE ENLIVE 237 ML LIQUID (VANILLA) PO SCH ×3 (09:00→17:00)
--- NOTE | 2020-05-07 09:58 | NUR ---
GPS/RN-NOTES PATIENT REFUSED ALL 0900 MEDICATIONS DESPITE EXPLANATIONS OF THE RISK AND BENEFITS. STATED " GO AWAY I DON'T TAKE ANY MEDICATIONS TODAY, LEAVE ME ALONE IN RIZWAN NAME". OFFERED X3
[2020-05-07] MEDS: risperiDONE 1 MG TABLET PO SCH ×2 (10:30→22:30)
--- NOTE | 2020-05-07 10:31 | NUR ---
GPS/RN-NOTES PATIENT REFUSED RISPERDAL 1MG P.O,STATED" I ALREADY TOLD YOU THAT I'M NOT TAKING MEDICATIONS". OFFERED X3
[2020-05-07] MEDS: ATORVASTATIN 40 MG TABLET PO SCH (18:00)
--- NOTE | 2020-05-07 18:03 | NUR ---
GPS/RN-NOTES PATIENT IN BED AWAKE,ALERT,NO ACUTE DISTRESS NOTED. NOTED PATIENT WITH EPISODE OF TALKING TO SELF,ARGUMENTATIVE AND CURSING STAFF PROVIDING CARE . PATIENT ALSO REFUSING TO EAT AND CONTINUE REFUSING HER MEDICATIONS DESPITE EXPLANATIONS RISK AND BENEFITS.DR. JACKSON MADE AWARE AND CHARGE NURSE AWARE. WILL ENDORSE TO INCOMING NURSE/SHIFT TO CONTINUE MONITORING FOR SAFETY AND BEHAVIOR AND CONTINUITY OF CARE.
[2020-05-07 20:24] VITALS: BP 154/73
[2020-05-07] MEDS: ACETAMINOPHEN 325 MG TABLET PO PRN (21:16)
--- NOTE | 2020-05-07 21:20 | NUR ---
NURSE NOTES: PATIENT REQUESTED FOR TYLENOL MEDICATION, SHE COMPLAINED OF LEFT KNEE PAIN. TYLENOL 650 MG GIVEN PRN ORDER. WILL MONITOR EFFICACY OF MEDICATION.
--- NOTE | 2020-05-07 22:30 | NUR ---
MEDICATIONS REFUSAL: PATIENT REFUSED HER RISPERDAL MEDICATION ON SCHEDULE. PER PATIENT "I DON'T NEED ANY MEDICATION RIGHT NOW BECAUSE I AM WELL, IN THE NAME OF RIZWAN!". INSTRUMENT ROOM TECHNICIAN EXPLAINED THE NEED OF SUCH BUT PATIENT KEPT ON REFUSING. WILL INFORM DAY SHIFT NURSE.
[2020-05-08] MEDS: ACETAMINOPHEN 325 MG TABLET PO PRN (03:49)
[2020-05-08 08:00] VITALS: BP 129/55
[2020-05-08] MEDS: ISOSORBIDE MONONITRATE (30MG) 30 MG TAB.SR.24H PO SCH ×2 (09:00→09:41)
[2020-05-08] MEDS: AMLODIPINE BESYLATE 5 MG TABLET PO SCH ×2 (09:00→09:40)
[2020-05-08] MEDS: ENSURE ENLIVE 237 ML LIQUID (VANILLA) PO SCH ×4 (09:00→17:00)
[2020-05-08] MEDS: MULTIVIT W/MINERALS 1 TAB TABLET PO SCH ×2 (09:00→09:40)
[2020-05-08] MEDS: CALCIUM CARB 600MG /VIT D 1 EACH TABLET PO SCH ×2 (09:00→09:46)
[2020-05-08] MEDS: ATENOLOL 50 MG TABLET PO SCH ×2 (09:00→09:41)
[2020-05-08] MEDS: risperiDONE 1 MG TABLET PO SCH ×2 (10:30→22:16)
[2020-05-08] MEDS: ATORVASTATIN 40 MG TABLET PO SCH (18:00)
--- NOTE | 2020-05-08 21:24 | NUR ---
GPS RN NOTES: REFUSED WEEKLY SKIN ASSESSMENT PT REFUSED WEEKLY SKIN ASSESSMENT AND PICTURE. PT EASILY AGITATED.PT STATED, "LET ME SLEEP. NOT RIGHT NOW." EXPLAIN RISKS AND BENEFITS. PT STILL REFUSED X 3. CONTINUE TO MONITOR.
--- NOTE | 2020-05-08 22:16 | NUR ---
GPS RN NOTES: REFUSED RISPERDAL PT REFUSED RISPERDAL DUE. EXPLAIN RISKS AND BENEFITS. PT STATED," LORD LET ME SLEEP." PT TEARFUL AND EASILY AGITATED. PT STILL REFUSED X3. CONTINUE TO MONITOR.
--- NOTE | 2020-05-09 05:50 | NUR ---
GPS RN NOTES: UPON DOING ROUNDS, PT AWAKE PRAISING IN HER ROOM LAYING IN BED. ASKED PT IF SHE NEEDS TO USE THE RESTROOM. PT STATED, "NO. I DID JUST A LITTLE IN MY DIAPER." ATTEMPTED TO CHECK DIAPER PT INCREASED AGITATION AND REFUSED TO BE CHANGED. PT REFUSED TO BE TOUCHED. ASSESSED PTS LINEN WITH NO SOIL NOTED. ASSESSED PTS DIAPER. DIAPER NOT SOILED. WILL CONTINUE TO MONITOR.
[2020-05-09] MEDS ORDERED: HALOPERIDOL LACTATE INJ 5 MG/ML VIAL IM STA (07:55)
[2020-05-09] MEDS ORDERED: LORAZEPAM INJ 2 MG/ML VIAL IM STA (07:55)
--- NOTE | 2020-05-09 08:10 | NUR ---
RN NOTE- PT OPPOSITIONAL REFUSING CARE AND MEDS. SCREAMING OUT LOUD STRIKING BED FRAME AND GESTURING WILDLY AT STAFF. DR YOUNG ORDERED ATIVAN 2 MG AND HALDOL 5 MG IM. COMPLIED. EMERGENCY IM GIVEN W STAFF AT BEDSIDE
[2020-05-09] MEDS: AMLODIPINE BESYLATE 5 MG TABLET PO SCH (09:00)
[2020-05-09] MEDS: MULTIVIT W/MINERALS 1 TAB TABLET PO SCH (09:00)
[2020-05-09] MEDS: ATENOLOL 50 MG TABLET PO SCH (09:00)
[2020-05-09] MEDS: ENSURE ENLIVE 237 ML LIQUID (VANILLA) PO SCH ×3 (09:00→17:15)
[2020-05-09] MEDS: CALCIUM CARB 600MG /VIT D 1 EACH TABLET PO SCH (09:00)
[2020-05-09] MEDS: ISOSORBIDE MONONITRATE (30MG) 30 MG TAB.SR.24H PO SCH (09:00)
--- NOTE | 2020-05-09 09:00 | NUR ---
RN NOTE- PT UNCOOPERATIVE THOUGH CALMER THAN THIS MORNING EMERGENCY IM GIVEN WHICH HELPED. PT PRAYS AND CONTINUES W YARSANISM PREOCCUPATION
[2020-05-09] MEDS: risperiDONE 1 MG TABLET PO SCH ×2 (10:30→21:32)
[2020-05-09 16:00] VITALS: BP 138/71
--- NOTE | 2020-05-09 16:05 | NUR ---
Individual Intervention: Pt was too manic and was not appropriate for an individual session at this time.
[2020-05-09] MEDS: ATORVASTATIN 40 MG TABLET PO SCH (17:15)
[2020-05-09 19:52] VITALS: BP 142/68
[2020-05-10 07:19] LABS: BASOPHILS % (AUTO) 0.1 % (0.0-2.0); EOSINOPHILS % (AUTO) 0.1 % (0.0-6.0); HEMATOCRIT 38 % (33-45); HEMOGLOBIN 12.4 g/dL (11.5-14.8); LYMPHOCYTES # (AUTO) 1.3 /CMM (0.8-4.8); LYMPHOCYTES % (AUTO) 14.7 % (20.0-44.0); MEAN CORPUSCULAR HGB CONC 33 g/dl (31.0-36.0); MEAN CORPUSCULAR VOLUME 89 fL (82-100); MONOCYTES # (AUTO) 1.4 /CMM (0.1-1.30); MONOCYTES % (AUTO) 15.7 % (2.0-12.0); NEUTROPHILS # (AUTO) 6.2 /CMM (1.8-8.9); NEUTROPHILS % (AUTO) 69.4 % (43.0-81.0); PLATELET COUNT (AUTO) 210 /CMM (150-450)
[2020-05-10 08:00] VITALS: BP 142/65
[2020-05-10] MEDS: ENSURE ENLIVE 237 ML LIQUID (VANILLA) PO SCH ×3 (08:12→16:48)
[2020-05-10] MEDS: ISOSORBIDE MONONITRATE (30MG) 30 MG TAB.SR.24H PO SCH (08:12)
[2020-05-10] MEDS: CALCIUM CARB 600MG /VIT D 1 EACH TABLET PO SCH (08:12)
[2020-05-10] MEDS: AMLODIPINE BESYLATE 5 MG TABLET PO SCH (08:13)
[2020-05-10] MEDS: ATENOLOL 50 MG TABLET PO SCH (08:13)
[2020-05-10] MEDS: MULTIVIT W/MINERALS 1 TAB TABLET PO SCH (08:13)
[2020-05-10 09:13] LABS: ALBUMIN 1.8 g/dL (3.4-5.0); CALCIUM, SERUM 7.7 mg/dL (8.5-10.1); CREATININE 0.6 mg/dL (0.6-1.3); POTASSIUM 2.9 mmol/L (3.5-5.1); TOTAL PROTEIN, SERUM 6.4 g/dL (6.4-8.2)
[2020-05-10] MEDS: risperiDONE 1 MG TABLET PO SCH ×2 (10:31→22:03)
[2020-05-10] MEDS: ACETAMINOPHEN 325 MG TABLET PO PRN (11:12)
[2020-05-10] MEDS ORDERED: POTASSIUM CHLORIDE 20 MEQ TAB.PRT.SR PO ONE (12:30)
[2020-05-10 13:25] LABS: LYMPHOCYTES % (MANUAL) 12 % (16-48); MONOCYTES % (MANUAL) 16 % (0-11.0); NEUTROPHILS % (MANUAL) 72 (42-76)
[2020-05-10 16:00] VITALS: BP 120/58
[2020-05-10] MEDS: ATORVASTATIN 40 MG TABLET PO SCH (18:00)
[2020-05-10 19:41] VITALS: BP 113/61
--- NOTE | 2020-05-11 06:30 | NUR ---
RN NOTES: PT. REFUSED AM LABS , RISKS & BENEFITS EXPLAINED , ENCOURAGED , PT. STILL REFUSED AND PT. BEHAVIOR UNCOOPERTIVE, PARANOID,ANXIOUS,EASILY AGITATED AT THIS TIME, REQUESTING TO LAB TRY AGAIN LATER, WILL CONTINUITY WITH CARE.
[2020-05-11 08:00] VITALS: BP 137/61
[2020-05-11] MEDS: ENSURE ENLIVE 237 ML LIQUID (VANILLA) PO SCH ×3 (08:04→16:19)
[2020-05-11] MEDS: ISOSORBIDE MONONITRATE (30MG) 30 MG TAB.SR.24H PO SCH ×2 (08:05→08:16)
[2020-05-11] MEDS: AMLODIPINE BESYLATE 5 MG TABLET PO SCH ×2 (08:05→08:16)
[2020-05-11] MEDS: MULTIVIT W/MINERALS 1 TAB TABLET PO SCH ×2 (08:05→08:17)
[2020-05-11] MEDS: ATENOLOL 50 MG TABLET PO SCH ×2 (08:06→08:17)
[2020-05-11] MEDS: CALCIUM CARB 600MG /VIT D 1 EACH TABLET PO SCH (08:06)
--- NOTE | 2020-05-11 10:09 | NUR ---
GPS RN NOTE: RECEIVED PATIENT IN THE ROOM RESTING IN BED AWAKE, NO COMPLAINS OF PAIN OR DISCOMFORT THIS TIME OF ASSESSMENT.PT REFUSED ALL HER AM MEDICATIONS PARANOID DELUSIONAL EXPLAIN RISK AND BENEFITS PT CONTINUE REFUSING PT GETS EASILY AGITATED, CONFUSED, FORGETFUL, EASILY IRRITABLE, AND DEMANDING. WILL CONTINUE MONITORING FOR SAFETY AND BEHAVIOR Q 15 MIN
[2020-05-11] MEDS: risperiDONE 1 MG TABLET PO SCH ×2 (10:30→21:32)
[2020-05-11] MEDS: ACETAMINOPHEN 325 MG TABLET PO PRN (10:49)
[2020-05-11 11:48] LABS: CALCIUM, SERUM 8.8 mg/dL (8.5-10.1); CREATININE 0.6 mg/dL (0.6-1.3); POTASSIUM 3.7 mmol/L (3.5-5.1)
--- NOTE | 2020-05-11 13:12 | NUR ---
Family Contact: SW called the pts daughter Aliza ([phone]) and left a voicemail stating that the pt is in the process of being riesed.
[2020-05-11] MEDS: ATORVASTATIN 40 MG TABLET PO SCH (17:49)
[2020-05-11 20:08] VITALS: BP 153/75
[2020-05-12 08:00] VITALS: BP 151/63
--- NOTE | 2020-05-12 08:34 | NUR ---
Family Contact/Riese Hearing Notification: JULIANA called the pts daughter Aliza ([phone]) and left a voicemail stating that the question that she left on the SW's voicemail is more appropriate for the nursing staff and that the SW will provide her updates on the pts discharge planning. JULIANA stated that the update that she has for her is that the pt is going to be having a Riese hearing today as she has been refusing her medications. JULIANA stated that the MD will be petitioning the court to be able to give the pt her medications through injection when she refuses.
[2020-05-12] MEDS: CALCIUM CARB 600MG /VIT D 1 EACH TABLET PO SCH (08:35)
[2020-05-12] MEDS: MULTIVIT W/MINERALS 1 TAB TABLET PO SCH (08:35)
[2020-05-12] MEDS: ISOSORBIDE MONONITRATE (30MG) 30 MG TAB.SR.24H PO SCH (08:35)
[2020-05-12] MEDS: ATENOLOL 50 MG TABLET PO SCH (08:36)
[2020-05-12] MEDS: AMLODIPINE BESYLATE 5 MG TABLET PO SCH (08:36)
[2020-05-12] MEDS: ENSURE ENLIVE 237 ML LIQUID (VANILLA) PO SCH ×4 (08:41→17:00)
[2020-05-12] MEDS: ACETAMINOPHEN 325 MG TABLET PO PRN (09:44)
[2020-05-12] MEDS: risperiDONE 1 MG TABLET PO SCH (09:44)
--- NOTE | 2020-05-12 09:47 | NUR ---
GPS/RN-NOTES PATIENT C/O RIGHT LEG PAIN AND REQUESTING FOR TYLENOL. TYLENOL 650MG P.O GIVEN PRN ORDER. WILL CONT. MONITORING FOR SAFETY AND BEHAVIOR.
--- NOTE | 2020-05-12 14:17 | NUR ---
GPS/RN-NOTES RECEIVED T.O ORDER FROM DR. YOUNG TO DISCONTINUE RISPERDAL I MG P.O AND ORDERED HALDOL 1MG P.O TID,AND GIVE HALDOL 1MG IM EVERY REFUSAL OF HALDOL P.O. DR. YOUNG STATED THAT PATIENT IS ALREADY ON RIESE.
[2020-05-12] MEDS ORDERED: HALOPERIDOL LACTATE INJ 5 MG/ML VIAL IM PRN (14:30)
[2020-05-12] MEDS: HALOPERIDOL 1 MG TABLET PO SCH ×2 (14:30→17:00)
[2020-05-12] MEDS: ATORVASTATIN 40 MG TABLET PO SCH (18:00)
--- NOTE | 2020-05-12 18:49 | NUR ---
GPS/RN-NOTES PATIENT REFUSED HALDOL 1MG P.O SCHEDULED AT 1520. HALDOL 1MG IM GIVEN ORDERED. PATIENT IS RIESE. DR. YOUNG MADE AWARE THAT HALDOL 1MG P.O SCHEDULED AT 1700 NOT ADMINISTER DUE TO HALDOL 1MG IM WAS GIVEN AT 1633.
[2020-05-12 20:23] VITALS: BP 141/66
[2020-05-13 08:00] VITALS: BP 151/56
[2020-05-13] MEDS: AMLODIPINE BESYLATE 5 MG TABLET PO SCH (08:40)
[2020-05-13] MEDS: ISOSORBIDE MONONITRATE (30MG) 30 MG TAB.SR.24H PO SCH (08:40)
[2020-05-13] MEDS: ATENOLOL 50 MG TABLET PO SCH (08:41)
[2020-05-13] MEDS: HALOPERIDOL 1 MG TABLET PO SCH ×3 (08:41→16:34)
[2020-05-13] MEDS: CALCIUM CARB 600MG /VIT D 1 EACH TABLET PO SCH (08:45)
[2020-05-13] MEDS: MULTIVIT W/MINERALS 1 TAB TABLET PO SCH (08:45)
[2020-05-13] MEDS: ENSURE ENLIVE 237 ML LIQUID (VANILLA) PO SCH ×3 (08:45→16:34)
--- NOTE | 2020-05-13 09:00 | NUR ---
RN NOTE- PT ALERT ORIENTED TO SELF ONLY CONFUSED COOPERATIVE THIS MORNING AND MEDICATION COMPLIANT PO INTAKE FAIR DIRECTABLE AND CALM DENIES AH VH
[2020-05-13 16:18] VITALS: BP 129/59
[2020-05-13] MEDS: ATORVASTATIN 40 MG TABLET PO SCH (17:23)
[2020-05-13 20:12] VITALS: BP 134/65
[2020-05-14 08:00] VITALS: BP 140/61
[2020-05-14] MEDS: CALCIUM CARB 600MG /VIT D 1 EACH TABLET PO SCH (08:35)
[2020-05-14] MEDS: ISOSORBIDE MONONITRATE (30MG) 30 MG TAB.SR.24H PO SCH (08:35)
[2020-05-14] MEDS: HALOPERIDOL 1 MG TABLET PO SCH ×3 (08:35→17:29)
[2020-05-14] MEDS: MULTIVIT W/MINERALS 1 TAB TABLET PO SCH (08:36)
[2020-05-14] MEDS: AMLODIPINE BESYLATE 5 MG TABLET PO SCH (08:36)
[2020-05-14] MEDS: ENSURE ENLIVE 237 ML LIQUID (VANILLA) PO SCH ×3 (08:38→17:29)
[2020-05-14] MEDS: ATENOLOL 50 MG TABLET PO SCH (08:38)
[2020-05-14 16:00] VITALS: BP 122/58
[2020-05-14] MEDS: ATORVASTATIN 40 MG TABLET PO SCH (17:29)
[2020-05-14 20:15] VITALS: BP 123/63
[2020-05-14] MEDS: ACETAMINOPHEN 325 MG TABLET PO PRN (22:27)
--- NOTE | 2020-05-14 22:28 | NUR ---
GPS RN NOTE: PT. C/O OF STOMACH PAIN. ADMINISTERED TYLENOL 650 MG PO PRN ORDERED. WILL CONTINUE TO MONITOR FOR SAFETY AND BEHAVIOR
[2020-05-15 08:00] VITALS: BP 128/58
[2020-05-15] MEDS: ISOSORBIDE MONONITRATE (30MG) 30 MG TAB.SR.24H PO SCH (09:06)
[2020-05-15] MEDS: CALCIUM CARB 600MG /VIT D 1 EACH TABLET PO SCH (09:07)
[2020-05-15] MEDS: AMLODIPINE BESYLATE 5 MG TABLET PO SCH (09:07)
[2020-05-15] MEDS: HALOPERIDOL 1 MG TABLET PO SCH ×3 (09:07→16:37)
[2020-05-15] MEDS: MULTIVIT W/MINERALS 1 TAB TABLET PO SCH (09:08)
[2020-05-15] MEDS: ATENOLOL 50 MG TABLET PO SCH (09:08)
[2020-05-15] MEDS: ENSURE ENLIVE 237 ML LIQUID (VANILLA) PO SCH ×3 (09:09→16:37)
[2020-05-15] MEDS: ACETAMINOPHEN 325 MG TABLET PO PRN ×3 (09:33→23:42)
--- NOTE | 2020-05-15 09:34 | NUR ---
RN NOTE: PAIN PT C/O 10/19 LEFT KNEE PAIN. ASSISTED PT TO REPOSITION FOR COMFORT AND MEDICATED WITH TYLENOL PO PRN.
[2020-05-15 16:00] VITALS: BP 117/66
[2020-05-15] MEDS: ATORVASTATIN 40 MG TABLET PO SCH (17:16)
--- NOTE | 2020-05-15 17:16 | NUR ---
RN NOTE: PAIN PT C/O 10/19 LEFT KNEE PAIN. REQUESTING TYLENOL PO PRN. TYLENOL ADMINISTERED.
--- NOTE | 2020-05-15 20:30 | NUR ---
GPS-RN NOTE: PATIENT REFUSED WEEKLY SKIN ASSESSMENT. Addendum: 05/16/20 at 0647 by RUFUS SANCHEZ RN 0600 - WHILE DOING MORNING CARE TO THE PATIENT. PATIENT AGREED TO HAVE HER SKIN CHECK. PLACED PICTURES IN THE CHART FOR WEEKLY SKIN ASSESSMENT. WILL ENDORSED TO THE DAY SHIFT NURSE.
[2020-05-15 20:49] VITALS: BP 140/56
[2020-05-15] MEDS: TEMAZEPAM 7.5 MG CAPSULE PO PRN (23:42)
--- NOTE | 2020-05-15 23:42 | NUR ---
GPS-RN NOTE: PATIENT C/O BILATERAL KNEE PAIN, ON A PAIN SCALE OF 3/10. ADMINISTERED ACETAMINOPHEN 650MG PO ORDERED. WILL CONTINUE TO REASSESS.
--- NOTE | 2020-05-15 23:44 | NUR ---
GPS-RN NOTE: INSOMNIA PATIENT UNABLE TO SLEEP. ADMINISTERED RESTORIL 7.5MG PO ORDERED. WILL CONTINUE TO MONITOR FOR PATIENT'S SAFETY.
[2020-05-16 07:39] LABS: BASOPHILS % (AUTO) 0.3 % (0.0-2.0); EOSINOPHILS % (AUTO) 0.9 % (0.0-6.0); HEMATOCRIT 34 % (33-45); HEMOGLOBIN 11.4 g/dL (11.5-14.8); LYMPHOCYTES # (AUTO) 2.5 /CMM (0.8-4.8); LYMPHOCYTES % (AUTO) 26.5 % (20.0-44.0); MEAN CORPUSCULAR HGB CONC 33 g/dl (31.0-36.0); MEAN CORPUSCULAR VOLUME 90 fL (82-100); MONOCYTES # (AUTO) 1.1 /CMM (0.1-1.30); NEUTROPHILS # (AUTO) 5.7 /CMM (1.8-8.9); NEUTROPHILS % (AUTO) 60.3 % (43.0-81.0); PLATELET COUNT (AUTO) 318 /CMM (150-450); RED BLOOD CELL COUNT(AUTO) 3.78 MIL/uL (4.0-5.2); WHITE BLOOD COUNT (AUTO) 9.4 K/uL (4.3-11.0)
[2020-05-16 07:46] LABS: CALCIUM, SERUM 8.6 mg/dL (8.5-10.1); CARBON DIOXIDE 26 mmol/L (21-32); CHLORIDE 102 mmol/L (98-107); CREATININE 0.5 mg/dL (0.6-1.3); GLUCOSE 83 mg/dL (74-106); MAGNESIUM 1.8 mg/dL (1.8-2.4); PHOSPHORUS 3.1 mg/dL (2.5-4.9); POTASSIUM 3.5 mmol/L (3.5-5.1); SODIUM SERUM 136 mmol/L (136-145); UREA NITROGEN, BLOOD 8 mg/dL (7-18)
[2020-05-16 08:00] VITALS: BP 125/66
[2020-05-16] MEDS: ATENOLOL 50 MG TABLET PO SCH (08:08)
[2020-05-16] MEDS: MULTIVIT W/MINERALS 1 TAB TABLET PO SCH (08:08)
[2020-05-16] MEDS: CALCIUM CARB 600MG /VIT D 1 EACH TABLET PO SCH (08:08)
[2020-05-16] MEDS: HALOPERIDOL 1 MG TABLET PO SCH ×3 (08:09→17:08)
[2020-05-16] MEDS: AMLODIPINE BESYLATE 5 MG TABLET PO SCH (08:09)
[2020-05-16] MEDS: ISOSORBIDE MONONITRATE (30MG) 30 MG TAB.SR.24H PO SCH (08:09)
[2020-05-16] MEDS: ENSURE ENLIVE 237 ML LIQUID (VANILLA) PO SCH ×3 (08:16→17:08)
[2020-05-16] MEDS: ACETAMINOPHEN 325 MG TABLET PO PRN (09:20)
--- NOTE | 2020-05-16 09:20 | NUR ---
RN NOTE: PAIN PT C/O 10/19 LEFT LOWER LEG PAIN. REQUESTING MEDICATION. MEDICATED WITH TYLENOL 650 MG PO PRN
--- NOTE | 2020-05-16 14:24 | NUR ---
Family Contact: This marine underwriter contacted patient's daughter Aliza ([phone]) and stated pt will be discharged 05/17 she is aware and agreeable.
[2020-05-16 16:00] VITALS: BP 110/52
[2020-05-16] MEDS: ATORVASTATIN 40 MG TABLET PO SCH (17:08)
--- NOTE | 2020-05-16 18:48 | NUR ---
RN NOTE: COVID NEG
[2020-05-16 19:52] VITALS: BP 132/58
[2020-05-16] MEDS: TEMAZEPAM 7.5 MG CAPSULE PO PRN (22:26)
--- NOTE | 2020-05-16 22:29 | NUR ---
GPS RN NOTES: INSOMNIA UPON DOING ROUNDS, PT PRAISING AND AWAKE. ENCOURAGE PT TP EXPRESS THOUGHTS AND FEELINGS. PT STATED, "I CANT SLEEP." OFFERED RESTORIL PRN PO ORDERED. PT AGREED AND TOLERATED MEDICATION WELL. CONTINUE TO MONITOR.
[2020-05-17 08:00] VITALS: BP 137/66
[2020-05-17] MEDS: ENSURE ENLIVE 237 ML LIQUID (VANILLA) PO SCH ×2 (08:23→12:15)
--- NOTE | 2020-05-17 08:23 | NUR ---
SW Discharge Note: [facility] [place] [facility] [address] [facility] [place] [address]; ([phone]) via Ambulance transportation at 11:00am. Patients daughter Aliza ([phone]) is aware and agreeable with discharge. Manuscript Editor spoke with Regina corrales, at [facility] ([phone]) who stated patient will be accepted at facility today. Patient is alert and oriented x1-2, and is not able to plan for self-care at this time, but is willing to accept care provided for her at the facility. Patient denies any suicidal or homicidal ideations. Patient is aware and agreeable with discharge plans. Patient will continue to follow-up with her (psychiatrist) Dr. Suazo and (key punch teacher) Dr. Ozuna. Patient presents with euthymic mood and congruent affect.
[2020-05-17] MEDS: ACETAMINOPHEN 325 MG TABLET PO PRN (08:24)
[2020-05-17] MEDS: CALCIUM CARB 600MG /VIT D 1 EACH TABLET PO SCH (08:24)
[2020-05-17] MEDS: AMLODIPINE BESYLATE 5 MG TABLET PO SCH (08:24)
[2020-05-17] MEDS: MULTIVIT W/MINERALS 1 TAB TABLET PO SCH (08:24)
[2020-05-17] MEDS: HALOPERIDOL 1 MG TABLET PO SCH ×2 (08:24→12:15)
[2020-05-17] MEDS: ATENOLOL 50 MG TABLET PO SCH (08:25)
[2020-05-17 08:26] VITALS: BP 137/66
[2020-05-17] MEDS: ISOSORBIDE MONONITRATE (30MG) 30 MG TAB.SR.24H PO SCH (08:26)
--- NOTE | 2020-05-17 08:28 | NUR ---
RN NOTE: PAIN PT C/O 10/19 LEFT KNEE PAIN. REQUESTING TYLENOL. TYLENOL 650 MG PO PRN ADMINISTERED
--- NOTE | 2020-05-17 13:00 | NUR ---
RN NOTE: PT REPORT CALLED TO RAVEN SOMMER AT [facility].
--- NOTE | 2020-05-17 14:25 | NUR ---
KNITTING MACHINE OPERATOR AUTOMATIC NOTE: 79 YEAR OLD FEMALE DISCHARGED TO [facility] IN STABLE CONDITION. COMPLIANT WITH MEDICATIONS, COOPERATIVE WITH TREATMENT PLANS. PATIENT DENIES SI/HI AND INSTRUCTED TO GO TO THE CLOSEST ER IF DEVELOPING SI/HI. BEHAVIOR IMPROVED, PSYCHIATRIC TREATMENT PLANS MET, MEDICAL TREATMENT PLANS DEFERRED FOR CONTINUAL MONITORING. EDUCATED PT ABOUT AFTER CARE PLAN AND COPY PROVIDED. RETURNED PERSONAL BELONGINGS TO PATIENT. MEDICATIONS RECONCILED WITH DR. YOUNG AND SONYA MORGAN. REPORT GIVEN TO RAVEN SOMMER FOR CONTINUITY OF CARE. PATIENT UNABLE TO SIGN DISCHARGE PAPERWORK. SKIN INTACT ON ADMIT AND DISCHARGE. PATIENT LEFT THE UNIT VIA GURNEY WITH EMS AT 1425.
== END 2020-05-17 14:30 | DRG 885 ==
LOC: GPS 17:25
PROVIDERS: ADMIT Psychiatry & Neurology Psychiatry; ATTEND Nurse Practitioner Acute Care
DX: F29 Unspecified psychosis not due to a substance or known physiological condition (principal); F01.50 Vascular dementia, unspecified severity, without behavioral disturbance, psychotic disturbance, mood disturbance, and anxiety; E43 Unspecified severe protein-calorie malnutrition; Z68.41 Body mass index [BMI] 40.0-44.9, adult; G93.40 Encephalopathy, unspecified; D68.59 Other primary thrombophilia; E66.01 Morbid (severe) obesity due to excess calories; F03.90 Unspecified dementia, unspecified severity, without behavioral disturbance, psychotic disturbance, mood disturbance, and anxiety; I10 Essential (primary) hypertension; M17.0 Bilateral primary osteoarthritis of knee; Z73.6 Limitation of activities due to disability; E83.42 Hypomagnesemia; E83.39 Other disorders of phosphorus metabolism; E87.6 Hypokalemia; T50.2X5A Adverse effect of carbonic-anhydrase inhibitors, benzothiadiazides and other diuretics, initial encounter; Y92.9 Unspecified place or not applicable; E78.5 Hyperlipidemia, unspecified; E11.9 Type 2 diabetes mellitus without complications; Z90.710 Acquired absence of both cervix and uterus; Z91.14 Patient's other noncompliance with medication regimen; Z91.19 Patient's noncompliance with other medical treatment and regimen; F22 Delusional disorders
CPT/HCPCS: 36415; 80048-TC; 80053-TC; 80061-TC; 81000-TC; 82962-TC; 83735-TC; 84100-TC; 85025-TC; 87081-TC; J1630; J2060